=== PATIENT | female | born 1990 | race Caucasian/White ===

== ENCOUNTER 2016-09-10 21:48 | Emergency (ER) | payer MEDICAID, OTHER ==
[~2016-09-10 21:48] MED LIST: DOXY100T PO; LORT7.5T3 PO; Z.0.NO CURRENT MEDS
[2016-09-10 23:00] LABS: AUTOMATED NEUTROPHIL # 6.4 TH/MM3 (1.8-7.7); BASOPHIL % 0.2 % (0.0-2.0); EOSINOPHIL # 0.2 TH/MM3 (0-0.4); EOSINOPHIL % 2.3 % (0.0-4.0); HEMATOCRIT 26.5 % (35.0-46.0); HEMO FLAGS DIFF FINAL; LYMPH % 23.6 % (9.0-44.0); LYMPHOCYTE # 2.3 TH/MM3 (1.0-4.8); MEAN CELL VOLUME 90.1 FL (80.0-100.0); MEAN CORPUSCULAR HEMOGLOBIN 31.8 PG (27.0-34.0); MEAN CORPUSCULAR HGB CONC 35.3 % (32.0-36.0); MONO % 6.5 % (0.0-8.0); NEUT % 67.4 % (16.0-70.0); PLATELET COUNT 256 TH/MM3 (150-450); RED BLOOD COUNT 2.94 MIL/MM3 (4.00-5.30); RED CELL DISTRIBUTION WIDTH 14.1 % (11.6-17.2); WHITE BLOOD COUNT 9.6 TH/MM3 (4.0-11.0)
[2016-09-10 23:11] LABS: ANION GAP 8 MEQ/L (5-15); AST (GOT) 62 U/L (15-37); BICARBONATE 26.9 MEQ/L (21.0-32.0); BLOOD UREA NITROGEN 11 MG/DL (7-18); CHLORIDE 101 MEQ/L (98-107); GLOMERULAR FILTRATION RATE 113 ML/MIN (>89); POTASSIUM 3.6 MEQ/L (3.5-5.1); SODIUM (NA) 136 MEQ/L (136-145)
[2016-09-10 23:12] LABS: ALT (GPT) 87 U/L (10-53)
[2016-09-10 23:14] LABS: ALKALINE PHOSPHATASE 192 U/L (45-117); TOTAL BILIRUBIN ADULT 0.4 MG/DL (0.2-1.0)
[2016-09-10] MEDS ORDERED: diphenhydrAMINE HCL 50 MG/ML VIAL IM ONE (23:15)
[2016-09-10] MEDS ORDERED: FAMO1TAB73 PO (23:25)
--- NOTE | 2016-09-10 23:25 | PD ---
HPI Chief Complaint Patient complains of itching all over for about a week Date Seen: Sep 10, 2016 Travel History International Travel<30 Days: No Contact w/Intl Traveler<30Days: No Known Affected Area: No History of Present Illness HPI Patient is 25-year-old white female at 26 weeks who is transferring her care here from [facility] and is yet to establish her care. She complains of itching all over body incessantly and for about a week the last couple days a prescription a lot worse, she has no rash, no history of this type of thing happening no history of chronic disease or liver problems, she denies leakage bleeding or contractions. Heart rate within normal limits and she is not miah Para: 0 : 4 : 3 History Past Medical History Narrative Medical History of the total body itching Obstetric History Obstetric History 3 early ABs Social History Alcohol Use: No Tobacco Use: No Substance Abuse: No Allergies-Medications (Allergen,Severity, Reaction): Coded Allergies: Adhesives (Verified Allergy, Mild, LOCAL SKIN, 01/02/07) Home Meds Active Scripts Doxycycline Hyclate 100 mg 100 Mg [id number] Mg PO BID #20 Ref 0 Prov:Josiah Barfield MD 05/29/08 Hydrocodone-Acetaminophen (Lortab 7.5/500) Tab1 Tab PO Q4HPRN #30 Ref 0 FOR PAIN Prov:Josiah Barfield MD 05/29/08 Reported Medications Miscellaneous (No Current Meds) Misc Ref 0 05/29/08 Review of Systems General / Constitutional: No: Fever, Weight Gain, Chills, Other Eyes: No: Diploplia, Blurred Vision, Visual changes, Pain, Photophobia HENT: No: Headaches, Vertigo, Lightheadedness Cardiovascular: No: Irregular Rhythm, Chest Pain or Discomfort, Palpitations, Tachycardia, Syncope, Varicosities, Edema, Cyanosis Respiratory: No: Cough, Short of Breath, Other Gastrointestinal: No: Nausea, Vomiting, Diarrhea Genitourinary: No: Decreased Urinary Output, Oliguria Musculoskeletal: No: Limited ROM, Weakness, Cramping, Edema, Pain Skin: No Rash, Itching, No Dryness, No Lumps, No Change in Pigmentation, No Change in Nails, No Alopecia, No Lesions Neurologic: No: Weakness, Dizziness, Syncope, Focal Abnormalities, Coordination Problem, Headache, Slurred Speech, Seizures Psychiatric: No: Depression, Suicidal Ideations, Homicidal Ideation Endocrine: No: Heat Intolerance, Cold Intolerance, Polydipsia, Polyuria, Other Physical Exam Narrative GENERAL: Well-nourished, well-developed patient. SKIN: Warm and dry. no rash , bites on her legs are being scratched too much and are at risk for secondary infection HEAD: Normocephalic and atraumatic. EYES: No scleral icterus. No injection or drainage. ENT: No nasal drainage noted. Mucous membranes pink. Airway patent. NECK: Supple, trachea midline. No JVD. CARDIOVASCULAR: Regular rate and rhythm without murmurs, gallops, or rubs. RESPIRATORY: Breath sounds equal bilaterally. No accessory muscle use. BREASTS: Bilateral exam showed no masses , no retractions, no nipple discharge. ABDOMEN/GI: Abdomen soft, non-tender, bowel sounds present, no rebound, no guarding Gravid to [26-] weeks size Fundal Height: [-26] Membranes: [intact ] Uterine Contractions: [none-] FHT's: Category: [1-] Baseline: [133-] Reactive: [yes-] Variability: [-mod] Decels: [0-] EXTREMITIES: No cyanosis or edema. BACK: Nontender without obvious deformity. No CVA tenderness. NEUROLOGICAL: Awake and alert. Motor and sensory grossly within normal limits. Five out of 5 muscle strength in all muscle groups. Normal speech. Data Data Orders Complete Blood Count With Diff (09/10/16 22:47) Comprehensive Metabolic Panel (09/10/16 22:47) Diphenhydramine Inj (Benadryl Inj) (09/10/16 23:15) Bile Acids Total (09/10/16 23:13) Labs Laboratory Tests Test 09/10/16 22:40 White Blood Count 9.6 Red Blood Count 2.94 Hemoglobin 9.4 Hematocrit 26.5 Mean Corpuscular Volume 90.1 Mean Corpuscular Hemoglobin 31.8 Mean Corpuscular Hemoglobin 35.3 Concent Red Cell Distribution Width 14.1 Platelet Count 256 Mean Platelet Volume 9.4 Neutrophils (%) (Auto) 67.4 Lymphocytes (%) (Auto) 23.6 Monocytes (%) (Auto) 6.5 Eosinophils (%) (Auto) 2.3 Basophils (%) (Auto) 0.2 Neutrophils # (Auto) 6.4 Lymphocytes # (Auto) 2.3 Monocytes # (Auto) 0.6 Eosinophils # (Auto) 0.2 Basophils # (Auto) 0.0 CBC Comment DIFF FINAL Differential Comment Sodium Level 136 Potassium Level 3.6 Chloride Level 101 Carbon Dioxide Level 26.9 Anion Gap 8 Blood Urea Nitrogen 11 Creatinine 0.63 Estimat Glomerular Filtration 113 Rate Random Glucose 96 Calcium Level 8.6 Aspartate Amino Transf 62 (AST/SGOT) Alanine Aminotransferase 87 (ALT/SGPT) Albumin 2.4 MDM Interpretation(s) Patient 25-year-old white female at 26 weeks who presents combining of severe itching over the last week worsening her last several days. No rash present, there are no obstetric problems otherwise no bleeding leakage or labor has no chronic diseases or illnesses at this time, she does have a history of drug use and is in drug rehabilitation now and is transferring her care from [facility] to [facility]. This problem is consistent with cholestasis of . Bile acids salts on the scan causing severe pruritus , probably bile acid results tonight Plan Plan to give the patient IM Benadryl tonight 50 mg, and then give prescription for Atarax for itching and Pepcid as an H2 albert at skin level, once her bile acid results are known the diagnosis confirmed begin the patient she can be get started on cholestyramine o r one of its derivatives for care directly. This was explained to the patient. She also has some topical steroid cream calamine lotion to use as well. Diagnosis Diagnosis: Primary Impression: Cholestasis during in second trimester Additional Impression: Itching Disposition: 01 DISCHARGE HOME Condition: Stable Scripts Famotidine (Pepcid)40 Mg Tab40 Mg PO BID #60 TAB Ref 0 Prov:Carlos A Roper II, MD 09/10/16 Carlos A Roper II, MD Sep 10, 2016 23:25
[2016-09-11 00:27] LABS: BACTERIA, URINE RARE /hpf; BLOOD, URINE NEG (NEG); COMMENT (UR) CULT NOT INDICATED; CULTURE IF INDICATED CULT NOT INDICATED; GLUCOSE,URINE NEG (NEG); KETONE, URINE NEG (NEG); NITRITE,URINE NEG (NEG); SQUAMOUS EPITHELIAL CELL URINE 1 /hpf (0-5); URINE COLOR YELLOW (YELLW/STRAW)
--- NOTE | 2016-09-18 08:49 | PD ---
History of Present Illness Date Seen: Sep 18, 2016 Time Seen: 08:47 History of Present Illness Patient was called at her home number documented in EMR ([id number]) in response to a phone call from patient's mother overnight. Her mother answered the phone and a message to call back was given. The patient called back at [phone]. She was evaluated on 09/10/16 for severe pruritus. CBC, BMP, bile acid labs were collected. Labs were remarkable for elevated bile acid of 32umol/L as well as mildly elevated liver enzymes, including an alkaline phosphatase of 192. These are reviewed with the patient over the phone. She she currently continues to have mild itching and is taking Benadryl PRN for this. She states she recently moved up from [facility], is releasing records to Dr. Biggs's office this morning and planning to establish care for the with her. The patient plans to follow-up within a week if possible. Patient was urged to call this morning to schedule an appointment with Dr. Marie since she plans to establish with her for the . She stated she would do this and have the number to call. All questions were answered. Patient was discussed with Dr. Cotton. Marichuy Moya MD R1 Sep 18, 2016 08:49
== END 2016-09-11 01:00 | disposition home or self-care (01) ==
LOC: HOBED 21:48
DX: O26.612 Liver and biliary tract disorders in pregnancy, second trimester (principal); K83.1 Obstruction of bile duct; O26.892 Other specified pregnancy related conditions, second trimester; L29.9 Pruritus, unspecified; R79.89 Other specified abnormal findings of blood chemistry; Z3A.26 26 weeks gestation of pregnancy
CPT/HCPCS: 80053; 81001; 82239; 85025; 96372; 99284; J1200

== ENCOUNTER → 2016-10-30 | Outpatient (CLI) | payer MEDICAID ==
[~2016-10-30] MED LIST changes: +FAMO1TAB73 PO
== END ==
LOC: HPND 11:08
PROVIDERS: ATTEND Obstetrics & Gynecology
DX: O35.8XX0 Maternal care for other (suspected) fetal abnormality and damage, not applicable or unspecified (principal); O26.613 Liver and biliary tract disorders in pregnancy, third trimester; O98.513 Other viral diseases complicating pregnancy, third trimester; Z3A.33 33 weeks gestation of pregnancy
CPT/HCPCS: 76816; 76818

== ENCOUNTER → 2016-11-01 | Outpatient (CLI) | payer MEDICAID ==
[~2016-11-01] MED LIST changes: +BETAMETHASONE SOD PHOS/ACETATE SUSP 30 MG/5 ML VIAL IM ONE; +IBUP-232 PO
== END ==
LOC: HOBG 10:38
PROVIDERS: ATTEND Obstetrics & Gynecology
DX: O26.613 Liver and biliary tract disorders in pregnancy, third trimester (principal); K83.1 Obstruction of bile duct
CPT/HCPCS: 96372; J0702

== ENCOUNTER 2016-11-12 13:33 | Inpatient (IN) | payer MEDICAID ==
[~2016-11-12] VITALS: Ht 165.1 cm; Wt 85.3 kg
[~2016-11-12 13:33] MED LIST changes: -BETAMETHASONE SOD PHOS/ACETATE SUSP 30 MG/5 ML VIAL IM ONE; -IBUP-232 PO
[2016-11-12] MEDS ORDERED: SODIUM CHLORIDE 0.9% FLUSH 10 ML FLUSH IV FLUSH PRN (15:00)
[2016-11-12] MEDS ORDERED: ONDANSETRON ODT 4 MG TAB PO PRN (15:00)
[2016-11-12] MEDS ORDERED: diphenhydrAMINE HCL 50 MG CAP PO PRN (15:00)
[2016-11-12 15:26] LABS: AUTOMATED NEUTROPHIL # 9.9 TH/MM3 (1.8-7.7); BASOPHIL % 0.1 % (0.0-2.0); EOSINOPHIL # 0.1 TH/MM3 (0-0.4); EOSINOPHIL % 1.1 % (0.0-4.0); HEMATOCRIT 32.3 % (35.0-46.0); HEMO FLAGS DIFF FINAL; LYMPH % 16.3 % (9.0-44.0); LYMPHOCYTE # 2.1 TH/MM3 (1.0-4.8); MEAN CELL VOLUME 90.6 FL (80.0-100.0); MEAN CORPUSCULAR HEMOGLOBIN 30.7 PG (27.0-34.0); MEAN CORPUSCULAR HGB CONC 33.9 % (32.0-36.0); MONO % 6.9 % (0.0-8.0); NEUT % 75.6 % (16.0-70.0); PLATELET COUNT 272 TH/MM3 (150-450); RED BLOOD COUNT 3.57 MIL/MM3 (4.00-5.30); RED CELL DISTRIBUTION WIDTH 13.6 % (11.6-17.2)
[2016-11-12 15:27] LABS: BACTERIA, URINE RARE /hpf; BLOOD, URINE NEG (NEG); COMMENT (UR) CULT NOT INDICATED; CULTURE IF INDICATED CULT NOT INDICATED; GLUCOSE,URINE NEG (NEG); KETONE, URINE NEG (NEG); MUCUS URINE FEW /lpf (OCC); NITRITE,URINE NEG (NEG); PH, URINE 5.5 (5.0-8.5); SQUAMOUS EPITHELIAL CELL URINE 3 /hpf (0-5); URINE COLOR YELLOW (YELLW/STRAW)
[2016-11-12 15:28] LABS: AMPHETAMINE, URINE NEG (NEG); BARBITURATES, URINE NEG (NEG); COCAINE, URINE NEG (NEG)
[2016-11-12 15:51] LABS: BICARBONATE 20.6 MEQ/L (21.0-32.0); POTASSIUM 3.6 MEQ/L (3.5-5.1)
[2016-11-12 15:53] LABS: INDIRECT BILIRUBIN 0.2 MG/DL (0.0-0.8); TOTAL BILIRUBIN ADULT 0.4 MG/DL (0.2-1.0)
--- NOTE | 2016-11-12 16:59 | HHI.HP ---
HPI Chief Complaint 35 3/7 week IUP with cholestasis of and opioid use disorder on MAT Date Seen: Nov 12, 2016 Travel History International Travel<30 Days: No Contact w/Intl Traveler<30Days: No Known Affected Area: No History of Present Illness HPI 26 yo swf at 35 3/7 weeks seen today for issues of cholestatis of and opioid use (MAT) She was referred to me by [facility]. She has Hep C GT 2b and is Rh - Her highest bile salt level in the last month was 15 but it did go down. Her LFTS are in mid 100's. She is ursodiol, visteral and prednisone with severe unabated itching. surveillance reassuring with BPP today 11/12. She also takes pepsid for GERD. No PTL, GDM or HTN. Late entrant to us at 30 weeks. Does smoke 1/2 pack cigarettes. No leaking, bleeding, Ucs. GFM. Maternal pelvimetry (clinical) is borderline at best. EFW 5 1/2 pounds. History Past Medical History Narrative Medical hep C hx of IVDA now on subutex Past Surgical History Surgical History: No Previous Surgery Family History Family History: Negative Social History Alcohol Use: No Tobacco Use: Yes Substance Abuse: Yes Allergies-Medications (Allergen,Severity, Reaction): Coded Allergies: Adhesives (Verified Allergy, Mild, LOCAL SKIN, 01/02/07) Home Meds Active Scripts Famotidine (Pepcid)40 Mg Tab40 Mg PO BID #60 TAB Ref 0 Prov:Carlos A Roper II, MD 09/10/16 Doxycycline Hyclate 100 mg 100 Mg [id number] Mg PO BID #20 Ref 0 Prov:Josiah Barfield MD 05/29/08 Hydrocodone-Acetaminophen (Lortab 7.5/500) Tab1 Tab PO Q4HPRN #30 Ref 0 FOR PAIN Prov:Josiah Barfield MD 05/29/08 Reported Medications Miscellaneous (No Current Meds) Misc Ref 0 05/29/08 Physical Exam Narrative GENERAL: Well-nourished, well-developed patient. SKIN: Warm and dry. scratching and causing excoriations HEAD: Normocephalic and atraumatic. EYES: No scleral icterus. No injection or drainage. ENT: No nasal drainage noted. Mucous membranes pink. Airway patent. NECK: Supple, trachea midline. No JVD. CARDIOVASCULAR: Regular rate and rhythm without murmurs, gallops, or rubs. RESPIRATORY: Breath sounds equal bilaterally. No accessory muscle use. BREASTS: Bilateral exam showed no masses , no retractions, no nipple discharge. ABDOMEN/GI: Abdomen soft, non-tender, bowel sounds present, no rebound, no guarding 36 cm Presentation: [-] 11/12 BPP EFW 5 1/2 very narrow arch. sacral promintory palpable. baby high EXTREMITIES: No cyanosis or edema. BACK: Nontender without obvious deformity. No CVA tenderness. NEUROLOGICAL: Awake and alert. Motor and sensory grossly within normal limits. Five out of 5 muscle strength in all muscle groups. Normal speech. Data Data Vital Signs Reviewed: Yes Orders Place In Observation (11/12/16 ) Diet Regular Basic (11/12/16 Dinner) Heart ZANDRA.QSHIFT (11/12/16 14:57) Heart ZANDRA.QD (11/12/16 14:57) Activity Oob Ad Yary (11/12/16 14:57) Complete Blood Count With Diff (11/12/16 14:57) Basic Metabolic Panel (Bmp) (11/12/16 14:57) Hepatic Functional Panel (11/12/16 14:57) Urinalysis - C+S If Indicated (11/12/16 14:57) Acetaminophen (Tylenol) (11/12/16 15:00) Eddfecko-Alf-Wlsvp-Iron Prenat (Stuartna (11/13/16 09:00) Sodium Chloride 0.9% Flush (Ns Flush) (11/12/16 21:00) Sodium Chloride 0.9% Flush (Ns Flush) (11/12/16 15:00) Ondansetron Odt (Zofran Odt) (11/12/16 15:00) Ob/Psych Drug Screen, Urine (11/12/16 14:57) Consult Perinatology (11/12/16 ) Specimen To Be Collected PRN (11/12/16 14:57) Ursodiol (Actigall) (11/12/16 21:00) Diphenhydramine (Benadryl) (11/12/16 15:00) Bile Acids Total (11/12/16 15:10) Ur Bath Salts (11/12/16 13:50) Ur Heroin (11/12/16 13:50) Ur K2 Spice (11/12/16 13:50) Ur Ecstasy (11/12/16 13:50) Phencyclidine Urine (Pcp) (11/12/16 13:50) Hydroxyzine Pamoate (Vistaril) (11/12/16 18:00) Prednisone (Deltasone) (11/13/16 09:00) Famotidine (Pepcid) (11/12/16 21:00) Buprenorphine (Buprenorphine) (11/13/16 09:00) Pill Splitter (Pill Splitter) (11/12/16 18:00) Ferrous Sulfate (Ferrous Sulfate) (11/12/16 21:00) Buprenorphine (Buprenorphine) (11/12/16 21:00) Hydroxyzine Pamoate (Vistaril) (11/12/16 17:00) Labs Laboratory Tests Test 11/12/16 13:50 White Blood Count 13.0 Red Blood Count 3.57 Hemoglobin 10.9 Hematocrit 32.3 Mean Corpuscular Volume 90.6 Mean Corpuscular Hemoglobin 30.7 Mean Corpuscular Hemoglobin 33.9 Concent Red Cell Distribution Width 13.6 Platelet Count 272 Mean Platelet Volume 8.9 Neutrophils (%) (Auto) 75.6 Lymphocytes (%) (Auto) 16.3 Monocytes (%) (Auto) 6.9 Eosinophils (%) (Auto) 1.1 Basophils (%) (Auto) 0.1 Neutrophils # (Auto) 9.9 Lymphocytes # (Auto) 2.1 Monocytes # (Auto) 0.9 Eosinophils # (Auto) 0.1 Basophils # (Auto) 0.0 CBC Comment DIFF FINAL Differential Comment Urine Color YELLOW Urine Turbidity HAZY Urine pH 5.5 Urine Specific [place] 1.016 Urine Protein NEG Urine Glucose (UA) NEG Urine Ketones NEG Urine Occult Blood NEG Urine Nitrite NEG Urine Bilirubin NEG Urine Urobilinogen LESS THAN 2.0 Urine Leukocyte Esterase NEG Urine WBC 1 Urine Squamous Epithelial 3 Cells Urine Bacteria RARE Urine Mucus FEW Microscopic Urinalysis Comment CULT NOT INDICATED Sodium Level 137 Potassium Level 3.6 Chloride Level 106 Carbon Dioxide Level 20.6 Anion Gap 10 Blood Urea Nitrogen 13 Creatinine 0.72 Estimat Glomerular Filtration 96 Rate Random Glucose 111 Calcium Level 8.9 Total Bilirubin 0.4 Direct Bilirubin 0.2 Indirect Bilirubin 0.2 Aspartate Amino Transf 133 (AST/SGOT) Alanine Aminotransferase 540 (ALT/SGPT) Alkaline Phosphatase 177 Total Protein 7.4 Albumin 2.5 Urine Opiates Screen NEG Urine Barbiturates Screen NEG Urine Amphetamines Screen NEG Urine Benzodiazepines Screen NEG Urine Cocaine Screen NEG Urine Cannabinoids Screen NEG Assessment/Plan Assessment and Plan recheck bile salts and LFTS have eval by Perinatologists tomorrow and see if agree with section this week. Shauna Marie MD Nov 12, 2016 16:59
[2016-11-12] MEDS ORDERED: PILL SPLITTER OTHER PRN (18:00)
[2016-11-12] MEDS ORDERED: BUPRENORPHINE HCL 8 MG SUBLINGUAL TAB SL SCH (21:00)
[2016-11-12] MEDS: SODIUM CHLORIDE 0.9% FLUSH 10 ML FLUSH IV FLUSH SCH (21:01)
[2016-11-12] MEDS: FERROUS SULFATE 325 MG (65 MG ELEMENTAL IRON) TAB PO SCH (21:01)
[2016-11-12] MEDS: URSODIOL 300 MG CAP PO SCH (21:01)
[2016-11-12] MEDS: FAMOTIDINE 20 MG TAB PO SCH (21:01)
[2016-11-13] VITALS (10 sets, daily range): BP systolic 95–113; BP diastolic 59–77; PULSE 18–74; RESP 12–20; TEMP 98–98.3; O2SAT 100
[2016-11-13] MEDS ORDERED: LACTATED RINGER'S 1000 ML INJ 1,000 ML IV ONE (08:14)
--- NOTE | 2016-11-13 08:14 | PD.OB.ANTE ---
Subjective Interval History quiet night with reassuring strip still extremely pruritic Objective Lab & Micro Results Test 11/12/16 11/12/16 13:50 14:20 White Blood Count 13.0 TH/MM3 Red Blood Count 3.57 MIL/MM3 Hemoglobin 10.9 GM/DL Hematocrit 32.3 % Mean Corpuscular Volume 90.6 FL Mean Corpuscular Hemoglobin 30.7 PG Mean Corpuscular Hemoglobin 33.9 % Concent Red Cell Distribution Width 13.6 % Platelet Count 272 TH/MM3 Mean Platelet Volume 8.9 FL Neutrophils (%) (Auto) 75.6 % Lymphocytes (%) (Auto) 16.3 % Monocytes (%) (Auto) 6.9 % Eosinophils (%) (Auto) 1.1 % Basophils (%) (Auto) 0.1 % Neutrophils # (Auto) 9.9 TH/MM3 Lymphocytes # (Auto) 2.1 TH/MM3 Monocytes # (Auto) 0.9 TH/MM3 Eosinophils # (Auto) 0.1 TH/MM3 Basophils # (Auto) 0.0 TH/MM3 CBC Comment DIFF FINAL Differential Comment Urine Color YELLOW Urine Turbidity HAZY Urine pH 5.5 Urine Specific [place] 1.016 Urine Protein NEG mg/dL Urine Glucose (UA) NEG mg/dL Urine Ketones NEG mg/dL Urine Occult Blood NEG Urine Nitrite NEG Urine Bilirubin NEG Urine Urobilinogen LESS THAN 2.0 MG/DL Urine Leukocyte Esterase NEG Urine WBC 1 /hpf Urine Squamous Epithelial 3 /hpf Cells Urine Bacteria RARE /hpf Urine Mucus FEW /lpf Microscopic Urinalysis Comment CULT NOT INDICATED Sodium Level 137 MEQ/L Potassium Level 3.6 MEQ/L Chloride Level 106 MEQ/L Carbon Dioxide Level 20.6 MEQ/L Anion Gap 10 MEQ/L Blood Urea Nitrogen 13 MG/DL Creatinine 0.72 MG/DL Estimat Glomerular Filtration 96 ML/MIN Rate Random Glucose 111 MG/DL Calcium Level 8.9 MG/DL Total Bilirubin 0.4 MG/DL Direct Bilirubin 0.2 MG/DL Indirect Bilirubin 0.2 MG/DL Aspartate Amino Transf 133 U/L (AST/SGOT) Alanine Aminotransferase 540 U/L (ALT/SGPT) Alkaline Phosphatase 177 U/L Total Protein 7.4 GM/DL Albumin 2.5 GM/DL Urine Opiates Screen NEG Urine Barbiturates Screen NEG Urine Amphetamines Screen NEG Urine Benzodiazepines Screen NEG Urine Cocaine Screen NEG Urine Cannabinoids Screen NEG Blood Type A NEGATIVE Antibody Screen Blood Bank Comment Physical Exam GENERAL: Well-nourished, well-developed patient. CARDIOVASCULAR: Regular rate and rhythm without murmurs, gallops, or rubs. RESPIRATORY: Breath sounds equal bilaterally. No accessory muscle use. ABDOMEN/GI: Abdomen soft, non-tender. 36 cm category one strip contracted pelvis diagnosed in office strip category one EXTREMITIES: No cyanosis or edema, non-tender, without signs of DVT. Assessment and Plan Assessment and Plan LFTs elevating significantly symptoms worsening bile salts pending but have been 15 prior time to operative delivery risks, benefits, indications and expectations reviewed in detail with Shauna Lazo MD Nov 13, 2016 08:14
[2016-11-13] MEDS ORDERED: LACTATED RINGER'S 1000 ML INJ 1,000 ML IV SCH ×2 (08:44→17:54)
[2016-11-13] MEDS: FERROUS SULFATE 325 MG (65 MG ELEMENTAL IRON) TAB PO SCH ×2 (09:00→21:12)
[2016-11-13] MEDS ORDERED: BUPRENORPHINE HCL 8 MG SUBLINGUAL TAB SL SCH ×2 (09:00)
[2016-11-13] MEDS: URSODIOL 300 MG CAP PO SCH ×2 (09:00→21:12)
[2016-11-13] MEDS: SODIUM CHLORIDE 0.9% FLUSH 10 ML FLUSH IV FLUSH SCH (09:00)
[2016-11-13] MEDS: FAMOTIDINE 20 MG TAB PO SCH ×2 (09:00→21:12)
[2016-11-13] MEDS ORDERED: predniSONE 5 MG TAB PO SCH ×2 (09:00)
[2016-11-13] MEDS: MULTIVIT/MIN/PREN/FOL AC/IRON PRENATAL TAB PO SCH (09:00)
[2016-11-13] MEDS ORDERED: CITRIC ACID-SODIUM CITRATE LIQ 30 ML UDC PO SCH (09:45)
[2016-11-13] MEDS ORDERED: ceFAZolin 2 GM PREMIX 50 ML IV ONE (11:30)
[2016-11-13] MEDS ORDERED: OXYTOCIN 10 UNIT/ML AMP ONE (11:45)
[2016-11-13] MEDS ORDERED: MORPHINE SULFATE PF 5 MG/10 ML VIAL ONE (11:45)
[2016-11-13] MEDS ORDERED: ONDANSETRON HCL 4 MG/2 ML VIAL ONE (11:45)
[2016-11-13] MEDS ORDERED: EPIDURAL-DO NOT ADMINISTER ANTICOAGULANTS PRN (12:15)
[2016-11-13] MEDS ORDERED: EPIDURAL-DIPHENHYDRAMINE HCL 50 MG/ML VIAL IV PUSH PRN (12:15)
[2016-11-13] MEDS ORDERED: EPIDURAL-DIPHENHYDRAMINE HCL 50 MG CAP PO PRN (12:15)
[2016-11-13] MEDS ORDERED: EPIDURAL-NALOXONE HCL 0.4 MG/ML AMP IV PRN (12:15)
[2016-11-13] MEDS ORDERED: EPIDURAL-NO SYSTEMIC NARCOTICS PRN (12:15)
[2016-11-13] MEDS ORDERED: BUPIVACAINE LIPOSOME PF 1.3% 20 ML VIAL ONE (12:46)
[2016-11-13] MEDS ORDERED: DICLOFENAC SODIUM 37.5 MG/ML VIAL IV PUSH ONE (12:48)
[2016-11-13] MEDS ORDERED: SODIUM CHLORIDE 0.9% FLUSH 10 ML FLUSH IV FLUSH PRN (13:00)
[2016-11-13] MEDS ORDERED: SIMETHICONE 80 MG CHEWABLE TAB PO PRN (13:00)
[2016-11-13] MEDS ORDERED: ONDANSETRON HCL 4 MG/2 ML VIAL IV PUSH PRN (13:00)
[2016-11-13] MEDS ORDERED: IBUPROFEN 600 MG TAB PO PRN (13:00)
[2016-11-13] MEDS ORDERED: OXYTOCIN 30 UNITS-500ML PREMIX 500 ML IV ONE (13:00)
--- NOTE | 2016-11-13 13:00 | PD.OB.DELI ---
Procedure Note Section Procedure Pre Op Diagnosis 35 1/2 weeks , cholestasis of , substance use disorder on MAT Post Op Diagnosis: Post Op Diagnosis same , delivered Performed by Shauna Marie Procedure: Primary Low Transverse Sec Indication for delivery: Maternal medical problems Informed consent obtained: For anesthesia, For procedure Confirmed correct: Patient, Procedure Anesthesia: Spinal Medication prior to procedure: As documented in eMAR Monitoring during procedure: Blood pressure monitoring, occupational therapy professor Urinary catheter: Inserted using sterile technique, To dependent drainage, ml urine output Sterile preparation: Duraprep, In usual fashion Position: Supine Operative Features Skin Incision: Pfannenstiel Uterine Incision: Low transverse w/knife / blunt ext Membranes Ruptured: Artificially Presentation: Occiput anterior Delivery of : Assisted : Female One Minute : 9 Five Minute : 9 Weight: 4 6 Status of : Viable, Cord blood, Umbilical cord, Nursery present Placenta delivered: Intact, Sent to pathology Medications: Antibiotics, Oxytocin Estimated blood loss: 400 Procedure tolerated: Well Maternal Condition: Stable Condition: Stable (dictated) Shauna Marie MD Nov 13, 2016 13:00
[2016-11-13 13:33] LABS: BLOOD GAS BASE EXCESS -1.1 mmol/L (-2-2); BLOOD GAS O2 HGB SATURATION 33 % (90-100); CORD BLOOD GAS HCO3 24 mmol/L (21-29); CORD BLOOD GAS PCO2 47 mmHG (34-78); CORD BLOOD GAS PH 7.33 (7.14-7.42); CORD BLOOD GAS PO2 18 mmHG (3.0-40.0); DRAW SITE CORD BLOOD; STAT NO
[2016-11-13] MEDS ORDERED: OXYTOCIN 30 UNITS-500ML PREMIX 500 ML ONE (13:36)
[2016-11-13] MEDS: ACETAMINOPHEN 325 MG TAB PO PRN ×2 (16:34→21:13)
[2016-11-13] MEDS ORDERED: SODIUM CHLORIDE 0.9% FLUSH 10 ML FLUSH IV FLUSH SCH (21:00)
[2016-11-13] MEDS ORDERED: KETOROLAC TROMETHAMINE 30 MG/ML (IVP) VIAL IV PUSH ONE (22:15)
[2016-11-13] MEDS ORDERED: KETOROLAC TROMETHAMINE 60 MG/2 ML (IM) VIAL IM ONE (22:15)
[2016-11-13] MEDS ORDERED: LORazepam 2 MG/ML VIAL IV ONE (22:30)
[2016-11-13] MEDS ORDERED: OXYTOCIN 30 UNITS-500ML PREMIX 500 ML IV PRN (23:00)
[2016-11-14 00:15] VITALS: BP 98/69; PULSE 70; RESP 16; TEMP 98.6
[2016-11-14 04:15] VITALS: BP 100/69; PULSE 69; RESP 14; TEMP 98
[2016-11-14 06:06] LABS: AUTOMATED NEUTROPHIL # 7.4 TH/MM3 (1.8-7.7); BASOPHIL % 0.2 % (0.0-2.0); EOSINOPHIL # 0.2 TH/MM3 (0-0.4); EOSINOPHIL % 1.9 % (0.0-4.0); HEMATOCRIT 32.2 % (35.0-46.0); HEMO FLAGS DIFF FINAL; LYMPH % 20.6 % (9.0-44.0); LYMPHOCYTE # 2.2 TH/MM3 (1.0-4.8); MEAN CELL VOLUME 91.3 FL (80.0-100.0); MEAN CORPUSCULAR HGB CONC 33.9 % (32.0-36.0); MONO % 7.7 % (0.0-8.0); NEUT % 69.6 % (16.0-70.0); PLATELET COUNT 220 TH/MM3 (150-450); RED BLOOD COUNT 3.52 MIL/MM3 (4.00-5.30); WHITE BLOOD COUNT 10.7 TH/MM3 (4.0-11.0)
[2016-11-14 06:25] LABS: INDIRECT BILIRUBIN 0.2 MG/DL (0.0-0.8); TOTAL BILIRUBIN ADULT 0.5 MG/DL (0.2-1.0)
[2016-11-14 08:00] VITALS: BP 104/63; PULSE 73; RESP 16; TEMP 98.1
--- NOTE | 2016-11-14 08:07 | HHI.OB ---
Subjective Post Operative Day: 1 Remarks pt resting comfortably, no complaints Objective Vitals/I&O Vital Signs Date Time Temp Pulse Resp B/P Pulse Ox O2 Delivery O2 Flow Rate FiO2 11/14/16 04:15 98.0 69 14 100/69 11/14/16 00:15 70 16 98/69 11/14/16 00:15 98.6 11/13/16 20:05 98.1 20 11/13/16 20:05 70 99/59 11/13/16 15:35 98.3 18 18 11/13/16 15:35 95/62 11/13/16 14:05 98.0 11/13/16 14:05 14 11/13/16 13:58 70 113/72 100 11/13/16 13:43 12 11/13/16 13:41 68 113/73 100 11/13/16 13:23 100 11/13/16 13:23 70 15 112/71 11/13/16 13:08 16 100 11/13/16 13:08 98.0 74 111/77 11/13/16 10:00 17 11/13/16 09:38 70 112/75 Result Diagram: 11/14/16 0454 11/12/16 1350 Objective Remarks GENERAL: Well-nourished, well-developed patient. CARDIOVASCULAR: Regular rate and rhythm without murmurs, gallops, or rubs. RESPIRATORY: Breath sounds equal bilaterally. No accessory muscle use. ABDOMEN/GI: Abdomen soft, non-tender, bowel sounds present. Incision: dressing Clean, dry and intact. Fundus: Firm, non-tender at umbilicus. GENITOURINARY: Light to moderate bleeding. EXTREMITIES: No cyanosis or edema, non-tender, without signs of DVT. Medications and IVs Current Medications Medications (Trade) Dose Ordered Sig/Chilango Route Start Time Stop Time Status Last Admin (Tylenol) 650 mg Q4H PRN PO 11/12/16 15:00 11/13/16 21:13 (Stuartnatal Plus 3 ) 1 tab DAILY PO 11/13/16 09:00 (NS Flush) 2 ml BID IV FLUSH 11/12/16 21:00 11/13/16 09:00 (NS Flush) 2 ml UNSCH PRN IV FLUSH 11/12/16 15:00 11/12/16 16:05 (Zofran Odt) 4 mg Q6H PRN PO 11/12/16 15:00 (Actigall) 300 mg Q12HR PO 11/12/16 21:00 11/13/16 21:12 (Benadryl) 50 mg Q6H PRN PO 11/12/16 15:00 11/12/16 15:45 (Pepcid) 40 mg BID PO 11/12/16 21:00 11/13/16 21:12 (Pill Splitter) 1 ea UNSCH PRN OTHER 11/12/16 18:00 11/12/16 21:07 (Ferrous Sulfate) 325 mg BID PO 11/12/16 21:00 11/13/16 21:12 Buprenorphine HCl 4 mg 4 mg DAILY SL 11/13/16 09:00 11/13/16 09:25 Lactated Ringer's 1,000 ml @ 150 mls/hr Q6H40M IV 11/13/16 08:44 11/13/16 10:27 (Lr 1000 ml Inj) 1,000 ml @ 100 mls/hr Q10H IV 11/13/16 17:54 11/14/16 13:53 11/13/16 21:14 (NS Flush) 2 ml BID IV FLUSH 11/13/16 21:00 (NS Flush) 2 ml UNSCH PRN IV FLUSH 11/13/16 13:00 (Mylicon Chew) 80 mg QID PRN PO 11/13/16 13:00 (Motrin) 600 mg Q6H PRN PO 11/13/16 13:00 11/13/16 18:36 (Renae-Colace) 2 tab Q12H PRN PO 11/13/16 13:00 (Ambien) 5 mg HS PRN PO 11/13/16 13:00 (M-M-R Ii Inj) 0.5 ml ONCE ONCE SQ 11/14/16 16:00 11/14/16 16:01 (Boostrix Inj) 0.5 ml ONCE ONCE IM 11/14/16 16:00 11/14/16 16:01 (Zofran Inj) 4 mg Q6H PRN IV PUSH 11/13/16 13:00 (Buprenorphine) 4 mg DAILY SL 11/14/16 09:00 (Deltasone) 2.5 mg DAILY PO 11/14/16 09:00 (Vistaril) 50 mg Q6H PRN PO 11/13/16 13:00 Miscellaneous Information NO SYSTEMIC NARCOTICS TO BE GIVEN FO... UNSCH PRN .XX 11/13/16 12:15 11/14/16 12:14 (Narcan Inj) 0.4 mg UNSCH PRN IV 11/13/16 12:15 11/14/16 12:14 (Benadryl Inj) 25 mg Q6H PRN IV PUSH 11/13/16 12:15 11/14/16 12:14 (Benadryl) 50 mg Q6H PRN PO 11/13/16 12:15 11/14/16 12:14 Miscellaneous Information ALL NURSING DEPARTMENTS UNSCH PRN .XX 11/13/16 12:15 11/14/16 12:14 Assessment/Plan Assessment and Plan s/p C/S for cholestasis, h/o opiate use , POD #1 Discharge Planning routine Attending Attestation pt seen by Ana Leroy MD Nov 14, 2016 08:07
[2016-11-14] MEDS ORDERED: KETOROLAC TROMETHAMINE 60 MG/2 ML (IM) VIAL IM ONE (09:15)
[2016-11-14] MEDS: MULTIVIT/MIN/PREN/FOL AC/IRON PRENATAL TAB PO SCH (09:24)
[2016-11-14] MEDS: FAMOTIDINE 20 MG TAB PO SCH ×2 (09:25→22:07)
[2016-11-14] MEDS: BUPRENORPHINE HCL 8 MG SUBLINGUAL TAB SL SCH (09:25)
[2016-11-14] MEDS: FERROUS SULFATE 325 MG (65 MG ELEMENTAL IRON) TAB PO SCH ×2 (09:26→21:59)
[2016-11-14] MEDS: URSODIOL 300 MG CAP PO SCH ×2 (09:26→21:59)
[2016-11-14] MEDS: predniSONE 5 MG TAB PO SCH (09:26)
[2016-11-14 10:01] LABS: RAPID PLASMA REAGIN SCREEN NON-REACTIVE (NON-REACTVE)
--- NOTE | 2016-11-14 10:11 | HHI.OB ---
Subjective Post Operative Day: 1 Remarks painful and trying to avoid opioids meeting with Yanelis Smith of DCF likes toradol needs to ambulate Objective Vitals/I&O Vital Signs Date Time Temp Pulse Resp B/P Pulse Ox O2 Delivery O2 Flow Rate FiO2 11/14/16 04:15 98.0 69 14 100/69 11/14/16 00:15 70 16 98/69 11/14/16 00:15 98.6 11/13/16 20:05 98.1 20 11/13/16 20:05 70 99/59 11/13/16 15:35 98.3 18 18 11/13/16 15:35 95/62 11/13/16 14:05 98.0 11/13/16 14:05 14 11/13/16 13:58 70 113/72 100 11/13/16 13:43 12 11/13/16 13:41 68 113/73 100 11/13/16 13:23 100 11/13/16 13:23 70 15 112/71 11/13/16 13:08 16 100 11/13/16 13:08 98.0 74 111/77 Result Diagram: 11/14/16 0454 11/12/16 1350 Objective Remarks GENERAL: Well-nourished, well-developed patient. CARDIOVASCULAR: Regular rate and rhythm without murmurs, gallops, or rubs. RESPIRATORY: Breath sounds equal bilaterally. No accessory muscle use. ABDOMEN/GI: Abdomen soft, non-tender, bowel sounds present. Incision: dressing Clean, dry and intact. Fundus: Firm, non-tender at umbilicus. GENITOURINARY: Light to moderate bleeding. EXTREMITIES: No cyanosis or edema, non-tender, without signs of DVT. Medications and IVs Current Medications Medications (Trade) Dose Ordered Sig/Chilango Route Start Time Stop Time Status Last Admin (Tylenol) 650 mg Q4H PRN PO 11/12/16 15:00 11/13/16 21:13 (Stuartnatal Plus 3 ) 1 tab DAILY PO 11/13/16 09:00 11/14/16 09:24 (NS Flush) 2 ml BID IV FLUSH 11/12/16 21:00 11/13/16 09:00 (NS Flush) 2 ml UNSCH PRN IV FLUSH 11/12/16 15:00 11/12/16 16:05 (Zofran Odt) 4 mg Q6H PRN PO 11/12/16 15:00 (Actigall) 300 mg Q12HR PO 11/12/16 21:00 11/14/16 09:26 (Benadryl) 50 mg Q6H PRN PO 11/12/16 15:00 11/12/16 15:45 (Pepcid) 40 mg BID PO 11/12/16 21:00 11/14/16 09:25 (Pill Splitter) 1 ea UNSCH PRN OTHER 11/12/16 18:00 11/12/16 21:07 Ferrous Sulfate 325 mg 325 mg BID PO 11/12/16 21:00 11/14/16 09:26 Lactated Ringer's 1,000 ml @ 150 mls/hr Q6H40M IV 11/13/16 08:44 11/13/16 10:27 (Lr 1000 ml Inj) 1,000 ml @ 100 mls/hr Q10H IV 11/13/16 17:54 11/14/16 13:53 11/13/16 21:14 (NS Flush) 2 ml BID IV FLUSH 11/13/16 21:00 (NS Flush) 2 ml UNSCH PRN IV FLUSH 11/13/16 13:00 (Mylicon Chew) 80 mg QID PRN PO 11/13/16 13:00 (Motrin) 600 mg Q6H PRN PO 11/13/16 13:00 11/13/16 18:36 (Renae-Colace) 2 tab Q12H PRN PO 11/13/16 13:00 (Ambien) 5 mg HS PRN PO 11/13/16 13:00 (M-M-R Ii Inj) 0.5 ml ONCE ONCE SQ 11/14/16 16:00 11/14/16 16:01 (Boostrix Inj) 0.5 ml ONCE ONCE IM 11/14/16 16:00 11/14/16 16:01 (Zofran Inj) 4 mg Q6H PRN IV PUSH 11/13/16 13:00 (Buprenorphine) 4 mg DAILY SL 11/14/16 09:00 11/14/16 09:25 (Deltasone) 2.5 mg DAILY PO 11/14/16 09:00 11/14/16 09:26 (Vistaril) 50 mg Q6H PRN PO 11/13/16 13:00 11/14/16 09:26 Miscellaneous Information NO SYSTEMIC NARCOTICS TO BE GIVEN FO... UNSCH PRN .XX 11/13/16 12:15 11/14/16 12:14 (Narcan Inj) 0.4 mg UNSCH PRN IV 11/13/16 12:15 11/14/16 12:14 (Benadryl Inj) 25 mg Q6H PRN IV PUSH 11/13/16 12:15 11/14/16 12:14 (Benadryl) 50 mg Q6H PRN PO 11/13/16 12:15 11/14/16 12:14 Miscellaneous Information ALL NURSING DEPARTMENTS UNSCH PRN .XX 11/13/16 12:15 11/14/16 12:14 Assessment/Plan Assessment and Plan LFTs are declining rapidly can have ofirmev Discharge Planning routine Shauna Marie MD Nov 14, 2016 10:11
[2016-11-14] MEDS ORDERED: ACETAMINOPHEN 1000 MG/100 ML VIAL IV PRN (10:15)
[2016-11-14] MEDS: KETOROLAC TROMETHAMINE 10 MG TAB PO PRN ×2 (15:32→22:00)
[2016-11-14] MEDS ORDERED: DIPHTH/TETANUS/ACEL PERTUSSIS (BOOSTER) 0.5 ML VIAL/PFS IM ONE (16:00)
[2016-11-14] MEDS ORDERED: MEASLES, MUMPS, RUBELLA VACCINE 0.5 ML VIAL SQ ONE (16:00)
[2016-11-14 21:00] VITALS: BP 111/69; PULSE 76; RESP 16; TEMP 98.2
[2016-11-15] MEDS: ZOLPIDEM TARTRATE 5 MG TAB PO PRN ×2 (00:14→21:51)
[2016-11-15] MEDS: KETOROLAC TROMETHAMINE 10 MG TAB PO PRN ×3 (05:11→21:51)
--- NOTE | 2016-11-15 08:16 | HHI.OB ---
Subjective Post Operative Day: 3 Remarks Doing well, pain is controlled baby is doing well Bleeding is normal Tolerating diet Objective Vitals/I&O Vital Signs Date Time Temp Pulse Resp B/P Pulse Ox O2 Delivery O2 Flow Rate FiO2 11/14/16 21:00 76 16 111/69 11/14/16 21:00 98.2 Result Diagram: 11/14/16 0454 11/12/16 1350 Objective Remarks GENERAL: Well-nourished, well-developed patient. CARDIOVASCULAR: Regular rate and rhythm without murmurs, gallops, or rubs. RESPIRATORY: Breath sounds equal bilaterally. No accessory muscle use. ABDOMEN/GI: Abdomen soft, non-tender, bowel sounds present. Incision: dressing Clean, dry and intact. Fundus: Firm, non-tender at umbilicus. GENITOURINARY: Light to moderate bleeding. EXTREMITIES: No cyanosis or edema, non-tender, without signs of DVT. Medications and IVs Current Medications Medications (Trade) Dose Ordered Sig/[place] Route Start Time Stop Time Status Last Admin (Tylenol) 650 mg Q4H PRN PO 11/12/16 15:00 11/13/16 21:13 (Stuartnatal Plus 3 ) 1 tab DAILY PO 11/13/16 09:00 11/14/16 09:24 (NS Flush) 2 ml BID IV FLUSH 11/12/16 21:00 11/13/16 09:00 (NS Flush) 2 ml UNSCH PRN IV FLUSH 11/12/16 15:00 11/12/16 16:05 (Zofran Odt) 4 mg Q6H PRN PO 11/12/16 15:00 (Actigall) 300 mg Q12HR PO 11/12/16 21:00 11/14/16 21:59 (Benadryl) 50 mg Q6H PRN PO 11/12/16 15:00 11/12/16 15:45 (Pepcid) 40 mg BID PO 11/12/16 21:00 11/14/16 22:07 (Pill Splitter) 1 ea UNSCH PRN OTHER 11/12/16 18:00 11/12/16 21:07 Ferrous Sulfate 325 mg 325 mg BID PO 11/12/16 21:00 11/14/16 21:59 (Lr 1000 ml Inj) 1,000 ml @ 150 mls/hr Q6H40M IV 11/13/16 08:44 11/13/16 10:27 (NS Flush) 2 ml BID IV FLUSH 11/13/16 21:00 (NS Flush) 2 ml UNSCH PRN IV FLUSH 11/13/16 13:00 (Mylicon Chew) 80 mg QID PRN PO 11/13/16 13:00 (Motrin) 600 mg Q6H PRN PO 11/13/16 13:00 11/13/16 18:36 (Renae-Colace) 2 tab Q12H PRN PO 11/13/16 13:00 (Ambien) 5 mg HS PRN PO 11/13/16 13:00 11/15/16 00:14 (Zofran Inj) 4 mg Q6H PRN IV PUSH 11/13/16 13:00 (Buprenorphine) 4 mg DAILY SL 11/14/16 09:00 11/14/16 09:25 (Deltasone) 2.5 mg DAILY PO 11/14/16 09:00 11/14/16 09:26 (Vistaril) 50 mg Q6H PRN PO 11/13/16 13:00 11/14/16 09:26 (Toradol) 10 mg Q6H PRN PO 11/14/16 10:15 11/19/16 10:14 11/15/16 05:11 Assessment/Plan Assessment and Plan POD #3 Discharge Planning routine Simon Gupta MD Nov 15, 2016 08:16
[2016-11-15] MEDS ORDERED: IBUP-232 PO (08:35)
--- NOTE | 2016-11-15 08:35 | HHI.DCPOC ---
Discharge Care Plan Report Symptoms to Your Doctor -Temperature above 100.5 degrees -Redness, of incision or excessive or foul smelling drainage -Unusual pain or calf pain -Increased vaginal bleeding -Painful or difficulty urinating -Feelings of extreme sadness or anxiety after 2 weeks Goals to Promote Your Health * To prevent worsening of your condition and complications * To maintain your health at the optimal level Directions to Meet Your Goals Take your medications as prescribed Follow your dietary instruction Follow activity as directed Ensure plenty of rest for recovery Drink fluids for hydration Keep your appointments as scheduled Take your immunizations and boosters as scheduled If your symptoms worsen call your PCP, if no PCP go to Urgent Care Center or Emergency Room Smoking is Dangerous to Your Health. Avoid second hand smoke Call the 24-hour crisis hotline for domestic abuse at Simon Gupta MD Nov 15, 2016 08:35
[2016-11-15] MEDS ORDERED: ACETAMINOPHEN 1000 MG/100 ML VIAL IV ONE (08:45)
[2016-11-15 09:00] VITALS: BP 111/73; PULSE 91; RESP 18; TEMP 97.8
[2016-11-15] MEDS: FAMOTIDINE 20 MG TAB PO SCH ×2 (09:07→21:51)
[2016-11-15] MEDS: FERROUS SULFATE 325 MG (65 MG ELEMENTAL IRON) TAB PO SCH ×2 (09:07→21:51)
[2016-11-15] MEDS: MULTIVIT/MIN/PREN/FOL AC/IRON PRENATAL TAB PO SCH (09:07)
[2016-11-15] MEDS: BUPRENORPHINE HCL 8 MG SUBLINGUAL TAB SL SCH (09:07)
[2016-11-15] MEDS: predniSONE 5 MG TAB PO SCH (09:07)
[2016-11-15] MEDS: URSODIOL 300 MG CAP PO SCH ×2 (09:07→21:50)
[2016-11-15] MEDS: DOCUSATE SODIUM 50 MG/SENNA 8.6 MG TAB PO PRN ×2 (09:29→22:04)
[2016-11-15 14:50] VITALS: BP 119/79; PULSE 87; RESP 17; TEMP 98.1
--- NOTE | 2016-11-15 19:02 | MP ---
cc: LIZETTE CHAPPELL DATE OF SURGERY 11/14/16 PREOPERATIVE DIAGNOSIS 1. A 35 1/2 week intrauterine with cholestasis of and elevated liver functions and bile acids 2. Substance use disorder on Subutex therapy. POSTOPERATIVE DIAGNOSIS 1. A 35 1/2 week intrauterine with cholestasis of and elevated liver functions and bile acids 2. Substance use disorder on Subutex therapy. 3. Delivered PROCEDURE Primary low transverse segment section ANESTHESIA Spinal with Duramorph and a tap postoperatively SURGEON Bennie Chappell MD ADMINISTRATION DEAN Dina Vergara, second year PA student FINDINGS A living female infant was delivered at 4 pounds 6 ounces with Apgars of 8 and 9 from ROBINA position with clear fluid and no nuchal cord. Placenta was a low anterior placenta removed entirely and sent to pathology. Estimated blood loss was about average of 500. Sponge, instrument, needle count were correct. Uterus, tubes and ovaries were unremarkable and she was continued on a low level of prednisone afterwards. PROCEDURE IN DETAIL The patient was identified as Kayley Gonzalez. Her permit was reviewed with her. The indications for the surgery were reviewed in great detail and the Intensive Care Unit was notified. She was taken to the operating room and administered spinal with Duramorph, placed in dorsal supine position with weight off the vena cava. Sequential stockings were on, a Pelayo was in place. She had received antibiotic IV. After assuring adequate analgesia and waiting three minutes after the prep, she was draped and then a Pfannenstiel incision was made and carried down to the rectus fascia with a clean knife. The rectus fascia was incised in an elliptical fashion and taken off the rectus muscle. The rectus muscle was in the midline and the parietal peritoneum was entered sharply and a bladder flap was created off the lower uterine segment. An incision was made into the intrauterine cavity and the was delivered with the findings as noted above. The cord was clamped x2, cut after a 45-second delay and the was handed to the neonatology team in attending. Cord gas and cord blood was obtained and then the placenta was delivered manually intact and sent to pathology. The uterus was exteriorized, cleaned with a lap sponge and then closed with chromic in a running interlocking fashion with a second horizontal imbricating suture after this. It was then replaced in the peritoneal cavity and copious irrigation was performed. It was noted to be hemostatic both at the angle and mid portion and then the rectus muscles was approximated loosely with a running stitch and then the fascia was closed with one Vicryl in a running, non interlocking stitch. The subcutaneous layer was closed with 3-0 plain and the skin was closed with 4-0 Vicryl on a Tunde needle. Estimated blood loss was about 400-500. Sponge, instrument, needle count were correct. She tolerated the procedure well and went to recovery room stable. MD JERED Espinal/ /9:41 AM /6:48 PM
[2016-11-15 22:00] VITALS: BP 111/72; PULSE 84; RESP 18; TEMP 97.8
[2016-11-16] MEDS: ACETAMINOPHEN 325 MG TAB PO PRN (01:57)
[2016-11-16 08:00] VITALS: BP 122/75; PULSE 79; RESP 16; TEMP 98.1
[2016-11-16] MEDS: KETOROLAC TROMETHAMINE 10 MG TAB PO PRN (08:18)
[2016-11-16] MEDS: FAMOTIDINE 20 MG TAB PO SCH (09:30)
[2016-11-16] MEDS: URSODIOL 300 MG CAP PO SCH (09:31)
[2016-11-16] MEDS: predniSONE 5 MG TAB PO SCH (09:31)
[2016-11-16] MEDS: FERROUS SULFATE 325 MG (65 MG ELEMENTAL IRON) TAB PO SCH (09:31)
[2016-11-16] MEDS: BUPRENORPHINE HCL 8 MG SUBLINGUAL TAB SL SCH (09:31)
[2016-11-16] MEDS: MULTIVIT/MIN/PREN/FOL AC/IRON PRENATAL TAB PO SCH (09:31)
[2016-11-16 12:48] LABS: PHENCYCLIDINE URINE NEG (NEG)
[2016-11-16 12:50] LABS: BATH SALTS (MDPV) UR NEG (NEG); ECSTASY (MDMA) UR NEG (NEG); HEROIN (6-ACETYLMORPHINE) UR NEG (NEG); K2 SPICE UR NEG (NEG); OBMETHADONE UR NEG (NEG)
[2016-11-16 12:51] LABS: GABAPENTIN UR NEG (NEG); HYDROMORPHONE U NEG (NEG); OXYCODONE (PERCODAN) NEG (NEG)
== END 2016-11-16 12:45 | disposition home or self-care (01) | DRG 765 ==
LOC: H2EA 13:33 → H1EA 11-13 14:19
PROVIDERS: ADMIT Obstetrics & Gynecology; ATTEND Obstetrics & Gynecology
PROC: 10D00Z1 Extraction of Products of Conception, Low, Open Approach (ICD-10-PCS; principal; 2016-11-14)
DX: O26.62 Liver and biliary tract disorders in childbirth (principal); K83.1 Obstruction of bile duct; O99.324 Drug use complicating childbirth; F11.20 Opioid dependence, uncomplicated; Z3A.35 35 weeks gestation of pregnancy; Z37.0 Single live birth; O99.62 Diseases of the digestive system complicating childbirth; K21.9 Gastro-esophageal reflux disease without esophagitis
CPT/HCPCS: 80048; 80076; 80307; 81001; 82239; 82805; 85025; 86592; 86703; 86850; 86900; 86901; 87340; 88307; 90715; C9290; G0481; J0131; J0690; J1130; J1885; J2060; J2274; J2405; J2590; J7120; J7512; Q0163